=== PATIENT | female | born 1945 | race Caucasian/White ===

== ENCOUNTER 2022-03-14 10:42 | Emergency (ER) | payer MEDICARE, BC ==
[~2022-03-14] VITALS: Ht 157.5 cm; Wt 65.9 kg
[2022-03-14 10:52] VITALS: BP 153/70
== END 2022-03-14 12:07 | disposition home or self-care (01) ==
LOC: ER 10:43
DX: S60.312A Abrasion of left thumb, initial encounter (principal); E03.9 Hypothyroidism, unspecified; W26.0XXA Contact with knife, initial encounter; Y93.89 Activity, other specified; Y92.89 Other specified places as the place of occurrence of the external cause; Y99.8 Other external cause status
CPT/HCPCS: 99281